=== PATIENT | female | born 1960 | race Caucasian/White ===

== ENCOUNTER 2016-03-08 11:54 | Inpatient (IN) | payer OTHER ==
[~2016-03-08] VITALS: Ht 167.6 cm; Wt 61.0 kg
[2016-03-08 12:30] VITALS: BP 89/42
[2016-03-08] MEDS: IV DEXTROSE 5% - 0.9 % NACL 1,000 ML IV SCH ×2 (13:00→21:44)
[2016-03-08] MEDS ORDERED: ONDANSETRON PF 4 MG/2 ML VIAL. IV PRN (13:00)
--- NOTE | 2016-03-08 13:28 | HP ---
ADMIT DATE: 03/08/2016 CHIEF COMPLAINT: Fever, body aches and weakness. HISTORY OF PRESENT ILLNESS: A 55-year-old white female seen by ANANDA Saab in my office on day of admission with 3 days of fatigue, weakness, poor oral intake and some vomiting and diarrhea. She has had a dry cough, muscle aches and just general malaise and poor appetite. She was positive for type A flu in the office and because of hypotension and dehydration, was admitted for IV fluids and supportive care. PAST MEDICAL: MEDICATIONS: Mirena and allergy meds. ALLERGIES: She has no drug allergies. She has had 1 . SURGERY: She has cholecystectomy and some nasal polyp removed. SOCIAL HISTORY: She is a nonsmoker, , nondrinker as well, [place]. FAMILY HISTORY: Unremarkable. REVIEW OF SYSTEMS: Mild diarrhea, otherwise generally unremarkable. OBJECTIVE: ENT: Mucosa looked to be dry. Sclerae are clear. TMs and pharynx normal. NECK: Revealed no carotid bruits, thyroid enlargement or masses. LUNGS: Decreased breath sounds, poor inspiratory effort. No wheezing or tachypnea. CARDIOVASCULAR: Regular rate and mild tachycardia. No murmur. ABDOMEN: Soft, benign, nontender. Bowel sounds are active. EXTREMITIES: Decreased skin turgor, good pedal and radial pulses. No cyanosis, clubbing or edema. GENERAL: General malaise with oriented x 4. Moves all extremities. No focal findings. ASSESSMENT: Type A flu was moderate dehydration and hypotension. PLAN: Per orders. BIA FAUSTIN MD DR: JOHNNIE/marycruz JOB#: [id number] / [id number]
[2016-03-08 13:56] LABS: BASO % 1 % (0-3); EOS % 1 % (0-3); HEMATOCRIT 36.5 % (36.0-47.0); HEMOGLOBIN 12.4 g/dL (12.0-15.5); LYMPH # 1.1 x10^3/uL (1.0-4.8); LYMPH % 36 % (24-48); MEAN CORPUSCULAR HEMOGLOBIN 32 pg (25-35); MEAN CORPUSCULAR HGB CONC 34 g/dL (31-37); MEAN CORPUSCULAR VOLUME 94 fL (79-100); MONO % 16 % (0-9); NEUT % 47 % (31-73); PLATELET COUNT 142 x10^3/uL (140-400); RED BLOOD COUNT 3.87 x10^6/uL (3.50-5.40); RED CELL DISTRIBUTION WIDTH 12.3 % (11.5-14.5); WHITE BLOOD COUNT 3.1 x10^3/uL (4.0-11.0)
[2016-03-08 14:14] LABS: CALCIUM 8.6 mg/dL (8.5-10.1); POTASSIUM 3.6 mmol/L (3.5-5.1)
[2016-03-08 15:28] VITALS: BP 86/42
[2016-03-08 15:30] VITALS: BP_SYST 86; BP_SYST 89; BP_DIAS 42
[2016-03-08] MEDS ORDERED: MULT-114 PO (16:10)
[2016-03-08] MEDS: OSELTAMIVIR 75 MG CAPSULE PO SCH ×2 (17:00→21:29)
[2016-03-08] MEDS ORDERED: CETI10TA22 PO (17:01)
[2016-03-08] MEDS ORDERED: TRIA10.8 NS (17:01)
--- NOTE | 2016-03-08 17:05 | RAD ---
Indication cough and shortness of breath. PA and lateral views of the chest were obtained. Comparison is made to an examination 09/20/2004. There is likely some scarring at the right lung apex. The heart and pulmonary vessels are within normal limits. There is no consolidated pneumonia. Significant pleural fluid is not present and there is no pneumothorax. IMPRESSION: No definite acute or focal process seen in the chest
[2016-03-08] MEDS ORDERED: IBUPROFEN 600 MG TABLET. PO PRN (18:15)
[2016-03-08 18:43] LABS: BILIRUBIN,URINE NEGATIVE (NEG); GLUCOSE,URINE NEGATIVE (NEG)
[2016-03-08 18:44] LABS: NITRITE,URINE NEGATIVE (NEG); PROTEIN,URINE NEGATIVE (NEG-TRACE); UROBILINOGEN,URINE 0.2 mg/dL (0.2 mg/dL)
[2016-03-08 18:45] LABS: BACTERIA,URINE 0 /HPF (0-FEW); RBC,URINE OCC /HPF (0-2); SQUAMOUS EPITHELIAL CELL,UR FEW /LPF; WBC,URINE 0 /HPF (0-4)
[2016-03-08 19:55] VITALS: BP 79/50
[2016-03-08 23:37] VITALS: BP 74/47
[2016-03-09] MEDS: IV NORMAL SALINE 1000ML BAG 1,000 ML IV SCH ×3 (02:44→20:31)
[2016-03-09 03:45] VITALS: BP 85/49
[2016-03-09 07:05] VITALS: BP 86/55
--- NOTE | 2016-03-09 08:22 | PDOC ---
Provider Note Provider Note feels less weak, some po intake, some diarrhea- vss, no temp, labs ok- cont iv fluid, adv diet, repeat wbc in am re 3.1 on admit, cont tamiflu BIA FAUSTIN MD Mar 09, 2016 08:22
[2016-03-09] MEDS: OSELTAMIVIR 75 MG CAPSULE PO SCH ×2 (09:17→20:29)
[2016-03-09 10:52] VITALS: BP 87/49
[2016-03-09 14:35] VITALS: BP 87/53
[2016-03-09 19:40] VITALS: BP 91/56
[2016-03-09] MEDS ORDERED: FLUTICASONE 50MCG/NASAL SPRAY 16GM BOTTLE. NS SCH (21:00)
[2016-03-09 22:25] VITALS: BP 86/53
[2016-03-10 02:33] VITALS: BP 88/57
[2016-03-10 05:59] LABS: HEMATOCRIT 32.9 % (36.0-47.0); HEMOGLOBIN 11.3 g/dL (12.0-15.5); RED BLOOD COUNT 3.46 x10^6/uL (3.50-5.40); RED CELL DISTRIBUTION WIDTH 12.4 % (11.5-14.5); WHITE BLOOD COUNT 2.9 x10^3/uL (4.0-11.0)
[2016-03-10 07:00] VITALS: BP 92/57
[2016-03-10] MEDS: OSELTAMIVIR 75 MG CAPSULE PO SCH (08:29)
[2016-03-10] MEDS: IV NORMAL SALINE 1000ML BAG 1,000 ML IV SCH (08:30)
--- NOTE | 2016-03-10 09:21 | DISCH ---
DISCHARGE INSTRUCTIONS Condition on Discharge Condition on Discharge: Stable Activity After Discharge Activity Instructions for Disc: No restrictions Diet after Discharge Diet after Discharge: Regular Follow-Up Follow up with: BIA London MD Mar 10, 2016 09:21
--- NOTE | 2016-03-10 09:25 | PDOC ---
Provider Note Provider Note [id number] BIA FAUSTIN MD Mar 10, 2016 09:25
[2016-03-10 10:43] VITALS: BP 87/50
[2016-03-10 15:02] VITALS: BP 95/54
--- NOTE | 2016-03-10 18:11 | DS ---
DATE OF DISCHARGE: 03/10/2016 HOSPITAL SUMMARY: A 55-year-old white female with influenza type A with vomiting, diarrhea, fatigue, and weakness, came in with dehydration and malaise and low blood pressure. White count was low at 3100 and at this time of discharge was 2900 with slightly low platelet count of 128,000 and chemistry profile was normal. Chest x-ray was clear. She received oral Tamiflu, IV fluids, and supportive care and is feeling better, afebrile, comfortable to be followed as an outpatient at this point. FINAL DIAGNOSES: 1. Influenza type A. 2. Leuko-thrombocytopenia, reactive, likely secondary to viral syndrome. OPERATIONS, PROCEDURES, COMPLICATIONS, CONSULTATIONS: None. DISPOSITION: Finished 5 days of Tamiflu 75 mg twice a day. Will follow up with white count in about 1 week. Home meds remain the same. Regular diet and activity as tolerated. PROGNOSIS: Good. BIA FAUSTIN MD DR: JOHNNIE/marycruz JOB#: [id number] / [id number]
== END 2016-03-10 15:55 | disposition home or self-care (01) | DRG 195 ==
LOC: 6 SOUTH 12:07
PROVIDERS: ADMIT Family Medicine; ATTEND Family Medicine
DX: J10.1 Influenza due to other identified influenza virus with other respiratory manifestations (principal); D69.6 Thrombocytopenia, unspecified; E86.0 Dehydration; I95.9 Hypotension, unspecified; Z90.49 Acquired absence of other specified parts of digestive tract
CPT/HCPCS: 36415; 71020; 80048; 81001; 85027; 87324; J7030; J7042

== ENCOUNTER 2016-05-23 13:31 | Emergency (ER) | payer OTHER ==
[~2016-05-23] VITALS: Ht 167.6 cm; Wt 59.4 kg
[~2016-05-23 13:31] MED LIST: CETI10TA22 PO; MULT-114 PO; TRIA10.8 NS
[2016-05-23] MEDS ORDERED: IV NORMAL SALINE 1000ML BAG 1,000 ML IV ONE ×3 (14:00→15:15)
--- NOTE | 2016-05-23 14:15 | PHYS DOC ---
Past Medical History Past Medical History: No Pertinent History Past Surgical History: Cholecystectomy, Tonsillectomy, Other Additional Past Surgical Histo: septoplasty Alcohol Use: Occasionally Drug Use: None Adult General Chief Complaint Chief Complaint: DIZZY/LIGHT HEADED HPI HPI 55-year-old female presenting to the emergency department today after having lightheadedness nausea and sweatiness approximately 2-3 hours after giving blood today around 11 AM. She reports giving approximately 1 pint of blood and feeling fine afterwards. She went down to the cafeteria and ate some food afterwards and was feeling okay. When she back to her desk she felt generally lightheaded and "not well". She denies any major medical conditions. She denies vomiting. She denies pain anywhere. Onset today. Location generalized. Duration intermittent. Worsened with walking. Review of systems is negative for chest pain shortness of breath. Positive for nausea without vomiting. Negative for fevers or chills. All other review of systems is negative unless otherwise noted in history of present illness. Review of Systems Review of Systems SEE ABOVE. Current Medications Current Medications Current Medications Medications (Trade) Dose Ordered Sig/Erik Start Time Stop Time Status Last Admin Dose Admin Sodium Chloride (Iv Sodium Chloride 0.9% 1000ml Bag) 1,000 ml @ 1,000 mls/hr 1X ONCE 05/23/16 15:15 05/23/16 16:14 DC Allergies Allergies Allergies Coded Allergies Type Severity Reaction Last Updated Verified No Known Drug Allergies 05/23/16 No Physical Exam Physical Exam Constitutional: Well developed, well nourished, no acute distress, non-toxic appearance. HENT: Normocephalic, atraumatic, bilateral external ears normal, oropharynx moist, no oral exudates, nose normal. [] Eyes: PERRLA, EOMI, conjunctiva normal, no discharge. Neck: Normal range of motion, no tenderness, supple, no stridor. [] Cardiovascular:Heart rate regular rhythm, no murmur [] Lungs & Thorax: Bilateral breath sounds clear to auscultation . No wheezing on auscultation. Abdomen: Bowel sounds normal, soft, no tenderness, no masses, no pulsatile masses. [] Skin: Warm, dry, no erythema, no rash. Back: No tenderness, no CVA tenderness. [] Extremities: No tenderness, no cyanosis, no clubbing, ROM intact, no edema. No petechiae on the lower extremities. Neurologic: Alert and oriented X 3, normal motor function, normal sensory function, no focal deficits noted. [] Psychologic: Affect normal, judgement normal, mood normal. Current Patient Data Vital Signs Vital Signs Date Time Temp Pulse Resp B/P Pulse Ox O2 Delivery O2 Flow Rate FiO2 05/23/16 15:35 65 95/54 100 Room Air 05/23/16 15:15 18 05/23/16 13:34 98.1 98.1 Lab Values Laboratory Tests Test 05/23/16 14:05 White Blood Count 7.5x10^3/uL (4.0-11.0) Red Blood Count 3.93x10^6/uL (3.50-5.40) Hemoglobin 12.6g/dL (12.0-15.5) Hematocrit 37.5% (36.0-47.0) Mean Corpuscular Volume 96fL (79-100) Mean Corpuscular Hemoglobin 32pg (25-35) Mean Corpuscular Hemoglobin Concent 34g/dL (31-37) Red Cell Distribution Width 13.0% (11.5-14.5) Platelet Count 238x10^3/uL (140-400) Neutrophils (%) (Auto) 70% (31-73) Lymphocytes (%) (Auto) 24% (24-48) Monocytes (%) (Auto) 5% (0-9) Eosinophils (%) (Auto) 1% (0-3) Basophils (%) (Auto) 0% (0-3) Neutrophils # (Auto) 5.3x10^3uL (1.8-7.7) Lymphocytes # (Auto) 1.8x10^3/uL (1.0-4.8) Monocytes # (Auto) 0.3x10^3/uL (0.0-1.1) Eosinophils # (Auto) 0.1x10^3/uL (0.0-0.7) Basophils # (Auto) 0.0x10^3/uL (0.0-0.2) Sodium Level 141mmol/L (136-145) Potassium Level 4.2mmol/L (3.5-5.1) Chloride Level 105mmol/L (98-107) Carbon Dioxide Level 28mmol/L (21-32) Anion Gap 8 (6-14) Blood Urea Nitrogen 17mg/dL (7-20) Creatinine 1.0mg/dL (0.6-1.0) Estimated GFR (Cockcroft-Gault) 58.0 Glucose Level 137mg/dL (70-99) H Calcium Level 8.8mg/dL (8.5-10.1) Total Bilirubin 0.4mg/dL (0.2-1.0) Direct Bilirubin 0.1mg/dL (0.0-0.2) Aspartate Amino Transferase (AST) 30U/L (15-37) Alanine Aminotransferase (ALT) 34U/L (14-59) Alkaline Phosphatase 69U/L (46-116) Total Protein 7.3g/dL (6.4-8.2) Albumin 3.9g/dL (3.4-5.0) Lipase 106U/L (73-393) Laboratory Tests 05/23/16 14:05 Laboratory Tests 05/23/16 14:05 EKG EKG [] Radiology/Procedures Radiology/Procedures [] Course & Med Decision Making Course & Med Decision Making Pertinent Labs and Imaging studies reviewed. (See chart for details) [] 55-year-old female presenting the emergency department with lightheadedness dizziness and nausea. Initially the patient's vital signs showed her to be hypotensive around 90 systolic. She does report normally her blood pressure being mid 90s to mid 100s systolic. She reports prior to the blood being taken her blood pressure was approximately 105 systolic. Patient was feeling lightheaded however was not diaphoretic in the examination room. She was otherwise well-appearing laying comfortably in the room. Pertinent physical exam findings showed normal lungs to auscultation with a nontender abdomen. Nonfocal neuro exam. She was given IV fluids in the emergency department. Blood work sent. On reexamination she reports feeling much better. Blood pressure is, up to mid 105 approximately. Patient was able to walk in the emergency department without any assistance and without return of her symptoms. She was subsequently discharged home to follow-up with her PCP over the next 2-3 days. Dragon Disclaimer Dragon Disclaimer This electronic medical record was generated, in whole or in part, using a voice recognition dictation system. Departure Departure Impression: Primary Impression: Hypovolemia Additional Impressions: Hypotension Nausea Dizziness Referrals: BIA FAUSTIN MD (PCP) Patient Instructions: Dizziness Additional Instructions: Thank you for allowing us to participate in your care today. Followup with your primary care physician in 3 days if your symptoms do not improve. If you do not have a primary care provider you can ask for a list of our primary care providers. Return to the emergency department you have any new or concerning findings. This should be evaluated by the primary care physician and any necessary consulting services for continued management within a few days after discharge. Return to emergency room if you have any new or concerning symptoms including but not limited to fever, chills, nausea, vomiting, intractable pain, any new rashes, chest pain, shortness of air, uncontrolled bleeding, difficulty breathing, and/or vision loss. Problem Qualifiers IFTIKHAR HAMILTON MD May 23, 2016 14:15
--- NOTE | 2016-05-23 14:27 | EKG ---
[facility] [address] [place] [address] Test Date: 2016-05-23 Test Time: 14:17:00 Pat Name: MARTHA PAGAN Department: Room: Gender: F Inventory Associate And Driver: : [id number] Requested By: IFTIKHAR HAMILTON Order Number: [id number] Reading MD: Reed Portillo Measurements Intervals Clancy Rate: 53 P: 49 CT: 174 QRS: 59 QRSD: 70 T: 58 QT: 458 QTc: 432 Interpretive Statements SINUS RHYTHM Electronically Signed On 05-24-2016 9:52:26 CDT by Reed Portillo
[2016-05-23 14:28] LABS: BASO % 0 % (0-3); EOS % 1 % (0-3); HEMATOCRIT 37.5 % (36.0-47.0); HEMOGLOBIN 12.6 g/dL (12.0-15.5); LYMPH # 1.8 x10^3/uL (1.0-4.8); LYMPH % 24 % (24-48); MEAN CORPUSCULAR HEMOGLOBIN 32 pg (25-35); MEAN CORPUSCULAR HGB CONC 34 g/dL (31-37); MEAN CORPUSCULAR VOLUME 96 fL (79-100); MONO % 5 % (0-9); NEUT % 70 % (31-73); PLATELET COUNT 238 x10^3/uL (140-400); RED BLOOD COUNT 3.93 x10^6/uL (3.50-5.40); WHITE BLOOD COUNT 7.5 x10^3/uL (4.0-11.0)
[2016-05-23 14:29] LABS: CALCIUM 8.8 mg/dL (8.5-10.1); POTASSIUM 4.2 mmol/L (3.5-5.1)
[2016-05-23 14:35] LABS: ALBUMIN 3.9 g/dL (3.4-5.0); DIRECT BILIRUBIN 0.1 mg/dL (0.0-0.2); TOTAL BILIRUBIN 0.4 mg/dL (0.2-1.0); TOTAL PROTEIN 7.3 g/dL (6.4-8.2)
[2016-05-23 16:00] VITALS: BP 108/58
== END 2016-05-23 17:15 | disposition home or self-care (01) ==
LOC: ER 13:31
DX: E86.1 Hypovolemia (principal); I95.9 Hypotension, unspecified; R42 Dizziness and giddiness; Z90.49 Acquired absence of other specified parts of digestive tract
CPT/HCPCS: 36415; 80048; 80076; 83690; 85027; 93005; 96360; 99285; J7030; 80305

== ENCOUNTER → 2016-07-26 | Outpatient (CLI) | payer OTHER ==
[2016-07-26 09:07] LABS: BASO % 1 % (0-3); EOS % 4 % (0-3); HEMATOCRIT 38.1 % (36.0-47.0); HEMOGLOBIN 13.4 g/dL (12.0-15.5); LYMPH # 1.7 x10^3/uL (1.0-4.8); LYMPH % 39 % (24-48); MEAN CORPUSCULAR HEMOGLOBIN 34 pg (25-35); MEAN CORPUSCULAR HGB CONC 35 g/dL (31-37); MEAN CORPUSCULAR VOLUME 96 fL (79-100); MONO % 8 % (0-9); NEUT % 49 % (31-73); PLATELET COUNT 215 x10^3/uL (140-400); RED BLOOD COUNT 3.99 x10^6/uL (3.50-5.40); RED CELL DISTRIBUTION WIDTH 12.4 % (11.5-14.5); WHITE BLOOD COUNT 4.3 x10^3/uL (4.0-11.0)
[2016-07-26 09:23] LABS: ALBUMIN 4.3 g/dL (3.4-5.0); ALBUMIN/GLOBULIN RATIO 1.1 (1.0-1.7); CALCIUM 9.2 mg/dL (8.5-10.1); CREATININE 0.9 mg/dL (0.6-1.0); GFR 65.5; POTASSIUM 3.8 mmol/L (3.5-5.1); TOTAL BILIRUBIN 0.6 mg/dL (0.2-1.0); TOTAL PROTEIN 8.2 g/dL (6.4-8.2)
[2016-07-26 09:24] LABS: CHOLESTEROL/HDL RATIO 5.8
[2016-07-26 09:31] LABS: FREE T4 1.09 ng/dL (0.76-1.46)
== END | disposition home or self-care (01) ==
LOC: LAB 08:42
PROVIDERS: ATTEND Physician Assistant
DX: Z13.1 Encounter for screening for diabetes mellitus (principal); Z13.220 Encounter for screening for lipoid disorders; R00.2 Palpitations; R35.0 Frequency of micturition; Z79.899 Other long term (current) drug therapy
CPT/HCPCS: 36415; 80053; 80061; 83036; 84439; 84443; 85027

== ENCOUNTER → 2016-08-04 | Outpatient (CLI) | payer OTHER ==
--- NOTE | 2016-08-04 09:34 | RAD ---
Lumbar spine, 3 views, 08/04/2016: History: Foot pain, back pain, radiculopathy The lumbar vertebral heights are well-maintained. The intervertebral disc spaces are well preserved. There are only minimal marginal spurs. There are mild sclerotic changes involving the facet joints in the lower lumbar spine. An IUD is projected over the lower pelvis near the midline. IMPRESSION: 1. Mild degenerative changes. 2. No acute bony abnormality is detected.
== END | disposition home or self-care (01) ==
LOC: RAD 08:41
PROVIDERS: ATTEND Physician Assistant
DX: M54.17 Radiculopathy, lumbosacral region (principal); M47.896 Other spondylosis, lumbar region
CPT/HCPCS: 72100

== ENCOUNTER → 2016-08-08 | Outpatient (CLI) | payer OTHER ==
--- NOTE | 2016-08-08 09:54 | RAD ---
MRI Lumbar Spine without contrast History: Left foot numbness for 4 months Technique: Multiplanar, multi sequential noncontrast MR imaging was performed of the lumbar spine. Contrast: None Comparison: None Findings: Lumbar vertebral body stature and AP alignment are preserved. There is mild degenerative disc disease at L5-S1, posterior annular tear at this level. Conus terminates at L1-2. There is no significant marrow edema. 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 There are likely tiny hemangiomas of L4 and L1. L1-L2: Neural foramina and spinal canal are adequate. L2-L3: Spinal canal and neural foramina are adequate. L3-L4: Neural foramina and spinal canal are adequate. L4-L5: Spinal canal and neural foramina are adequate. There are posterolateral annular tears bilaterally. L5-S1: There is a negligible posterior protrusion without impingement of the descending S1 nerve roots. Spinal canal and the neural foramina are adequate. Impression: 1. There is no significant lumbar spinal stenosis or neural foramina compromise. There is mild degenerative disc disease at L5-S1. There are posterior annular tears as stated. 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 Electronically signed by: Teddy Bonilla MD (08/08/2016 9:51 AM)
== END | disposition home or self-care (01) ==
LOC: MRI 08:18
PROVIDERS: ATTEND Family Medicine
DX: M51.37 Other intervertebral disc degeneration, lumbosacral region (principal); M54.17 Radiculopathy, lumbosacral region
CPT/HCPCS: 72148

== ENCOUNTER → 2016-08-15 | Outpatient (CLI) | payer OTHER ==
--- NOTE | 2016-08-15 15:48 | RAD ---
Indication: Bilateral lower extremity swelling. Grayscale, color-flow and duplex Doppler evaluation of bilateral lower extremity deep venous systems was performed. FINDINGS: There is no evidence of right or left lower extremity DVT. Both lower extremity deep venous systems showed normal compressibility with normal response to augmentation and Valsalva. No fluid collection or mass is detected. IMPRESSION: No evidence of right or left lower extremity DVT.
== END | disposition home or self-care (01) ==
LOC: US 15:46
PROVIDERS: ATTEND Physician Assistant
DX: M79.89 Other specified soft tissue disorders (principal)
CPT/HCPCS: 93970

== ENCOUNTER → 2016-10-14 | Outpatient (CLI) | payer OTHER ==
[~2016-10-14] MED LIST changes: +ASPI-482 PO; +CHOL10003 PO; +FISH1CAP PO; +GABA-586 PO; +[UNRECOGNIZED DRUG - OTHER]; +tumeric curcumin
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
== END | disposition home or self-care (01) ==
LOC: PNCL 07:58
PROVIDERS: ATTEND Anesthesiology
DX: M51.37 Other intervertebral disc degeneration, lumbosacral region (principal); M79.662 Pain in left lower leg; K21.9 Gastro-esophageal reflux disease without esophagitis; I10 Essential (primary) hypertension; R42 Dizziness and giddiness
CPT/HCPCS: 99214

== ENCOUNTER → 2016-10-26 | Outpatient (CLI) | payer OTHER ==
[~2016-10-26] MED LIST changes: +IOHEXOL 180 MG/ML 10 ML VIAL. ONE; +methylPREDNISolone ACETATE 40 MG/ML VIAL. ONE; +methylPREDNISolone ACETATE 80 MG/ML VIAL. ONE
--- NOTE | 2016-10-26 13:19 | PN ---
DATE: 10/26/2016 PROGRESS NOTE FOR PAIN CLINIC DIAGNOSES: Lumbar radiculopathy with lumbar degenerative disk disease. HISTORY OF PRESENT ILLNESS: The patient is a 56-year-old female who returns for followup status post initial evaluation and Medrol Dosepak. The patient reports she did better, about 50% with the Medrol Dosepak, still some pain in low back and left leg as it was previously, returning not to baseline, but still significant. The patient has been taking it very easy, she reports, without significant activity or pushing activities and is somewhat cautious in starting this again as she is afraid that she may exacerbate the pain. The patient reports pain as 6 on a scale of 10 is worse, 2 at its least and is currently a 4, which is its average number. The patient reports it as aching, shooting, tingling, burning, radiating to the left leg, as it was previously, in the posterior gluteus, posterior thigh, posterior calf and also the side of the foot on the left side and sometimes at the top of the foot as well. The patient reports no new motor or sensory deficits. No new bowel or bladder incontinence. PHYSICAL EXAMINATION: VITAL SIGNS: Today, the patient's blood pressure is 113/66, pulse 67, respirations 20 and temperature is 97.7 degrees Fahrenheit. Weight is 140 pounds. GENERAL: The patient is awake, alert, oriented, appropriate, very pleasant demeanor. HEENT: Head shows normocephalic, atraumatic. Extraocular movements are intact and symmetrical. Oral cavity, mucous membranes are moist and pink. Dentition is intact. NECK: Shows anterior throat supple, without palpable lymphadenopathy noted. Swallow reflex is symmetrical. CHEST: Shows normal on inspection. Breath sounds are clear to auscultation bilaterally. HEART: Shows S1 and S2 clear. ABDOMEN: Soft, nontender and nondistended. No palpable organomegaly is noted. BACK: Shows spine grossly midline. Normal-appearing thoracic kyphosis and lumbar lordotic curvature. Lumbar paraspinous muscle shows symmetrical on inspection and firm, but without significant tenderness with palpation throughout. No tenderness over the sacrum and sacroiliac regions or the spinous processes. The patient shows good rotation and motion, both laterally as well as extension and flexion, without difficulty in the lumbar distribution. LOWER EXTREMITIES: Show deep tendon reflexes 2+ in the patellar, 1+ tendo calcaneus tendons. Motor exam is strong with 5/5 dorsiflexion, extension, quadriceps and hamstring flexion and equal. Options were discussed with the patient. The patient's old chart was reviewed as her current medication regimen updated. Current review of systems updated today as well. We will proceed with a lumbar epidural steroid injection today with fluoroscopic guidance. Risks were again discussed including, but not limited to bleeding, infection, possibility of epidural hematoma, subsequent neurologic compromise, dural puncture, headaches, spinal cord and/or nerve damage, side effects of steroid medication and poor results regarding pain control. The patient understands and wishes to proceed. The patient will return to clinic in approximately 2 weeks for followup, was counseled on return appointment, activity level and side effects to be aware of. DIAGNOSES: Lumbar radiculopathy with lumbar degenerative disk disease. PROCEDURES: Lumbar epidural steroid injection in translaminar approach, L5-S1 level using C-arm fluoroscopic guidance under sterile prep and drape using local anesthetic. MEDICATION INJECTED: A total of 120 mg Depo-Medrol plus 10 mL preservative-free normal saline and 2 mL Isovue for contrast. CONDITION AT DISCHARGE: Stable. The patient tolerated procedure well, had no complications. THERESE SMITH MD DR: LALITO/nts JOB#: [id number] / [id number]
== END ==
LOC: PNCL 08:05
PROVIDERS: ATTEND Anesthesiology
DX: M51.16 Intervertebral disc disorders with radiculopathy, lumbar region (principal); Z90.49 Acquired absence of other specified parts of digestive tract; Z98.890 Other specified postprocedural states
CPT/HCPCS: 62323; J1030; J1040

== ENCOUNTER → 2016-11-09 | Outpatient (CLI) | payer OTHER ==
--- NOTE | 2016-11-09 12:09 | PAIN ---
DATE OF SERVICE: 11/09/2016 DIAGNOSIS: Lumbar radiculopathy with lumbar degenerative disk disease. HISTORY OF PRESENT ILLNESS: The patient is a 56-year-old female who returns for followup status post lumbar epidural steroid injection x 1. The patient reports approximately 50% improvement after the first injection in her left leg. She was doing very well, increasing her activity with greater ease and comfort, sleeping better at night, performing daily activities with much greater ability and ease. The patient reports the pain returned as she was doing some yoga, some stretching and some kickboxing with her left leg and that began to return the pain just a few days ago. The patient reports other than that she was doing quite well, only some pain to the low back, mainly on the left side, but occasionally on the right side and into the left leg and foot. The patient reports as aching, tingling, cramping, burning off and on, though not intense and not constant. The patient reports a 3 on a scale of 10 at its worse, 2 on average and 1 on a scale of 10 at its least and is at 1 today. The patient reports it wakes her from sleep occasionally, but not every night. She needs to reposition and get back to sleep, sleeps about 5 hours at a time. PHYSICAL EXAMINATION: VITAL SIGNS: The patient's blood pressure 104/71, pulse 65, respirations are 16, temperature 98.1 degrees Fahrenheit. Height is 5 feet 6 inches, weighs 135 pounds. GENERAL: The patient is awake, alert, oriented, appropriate, very pleasant demeanor. HEENT: Head shows normocephalic, atraumatic. Extraocular movements are intact and symmetrical. Oral cavity, mucous membranes are moist and pink. Dentition is intact. NECK: Shows anterior throat supple without palpable lymphadenopathy noted. Swallow reflex is symmetrical. CHEST: Shows normal on inspection. Breath sounds clear to auscultation bilaterally. HEART: Shows S1 and S2 clear. No murmurs auscultated. ABDOMEN: Soft, nontender, nondistended. No palpable organomegaly, no rebound or guarding demonstrated. BACK: Shows spine grossly midline. Lumbar paraspinous muscle shows some moderate tenderness to palpation, but is symmetrical without atrophy or hypertrophy. The patient shows good rotational motion both laterally as well as extension and flexion without difficulty. EXTREMITIES: Lower extremities showed deep tendon reflexes 2+ in the patellar tendons, 1+ tendo calcaneus tendons, are equal. Motor exam is strong with 5/5 dorsiflexion, extension, quadriceps and hamstring flexion and symmetrical. Options were discussed with the patient. The patient's old chart was reviewed as her current medication regimen updated. Current review of systems updated today as well. We will proceed with a second in the series of lumbar epidural steroid injection with fluoroscopic guidance. Risks were again discussed including, but not limited to bleeding, infection, possibility of epidural hematoma, subsequent neurologic compromise, dural puncture, headaches, spinal cord and/or nerve damage, side effects of steroid medication and poor results regarding pain control. The patient understands and wishes to proceed. The patient will return to clinic in approximately 2 weeks for followup. She was counseled on return appointment, activity level and side effects to be aware of. DIAGNOSIS: Lumbar radiculopathy with lumbar degenerative disk disease. PROCEDURE: Lumbar epidural steroid injection in translaminar approach at the L5-S1 level using C-arm fluoroscopic guidance under sterile prep and drape using local anesthetic. MEDICATION INJECTED: A total of 120 mg Depo-Medrol plus 10 mL of preservative-free normal saline and 2 mL Isovue for contrast. CONDITION AT DISCHARGE: Stable. The patient tolerated procedure well, had no complications. THERESE SMITH MD DR: LALITO/marycruz JOB#: [id number] / [id number]
== END | disposition home or self-care (01) ==
LOC: PNCL 08:05
PROVIDERS: ATTEND Anesthesiology
DX: M51.16 Intervertebral disc disorders with radiculopathy, lumbar region (principal); Z90.49 Acquired absence of other specified parts of digestive tract; Z87.39 Personal history of other diseases of the musculoskeletal system and connective tissue
CPT/HCPCS: 62323; J1030; J1040

== ENCOUNTER → 2016-11-23 | Outpatient (CLI) | payer OTHER ==
[~2016-11-23] MED LIST changes: -IOHEXOL 180 MG/ML 10 ML VIAL. ONE; +ONDA4TAB10 SL; -methylPREDNISolone ACETATE 40 MG/ML VIAL. ONE; -methylPREDNISolone ACETATE 80 MG/ML VIAL. ONE
--- NOTE | 2016-11-23 10:12 | PAIN ---
DATE OF SERVICE: 11/23/2016 PROGRESS NOTE FOR PAIN CLINIC DIAGNOSES: Lumbar radiculopathy with lumbar degenerative disk disease. HISTORY OF PRESENT ILLNESS: The patient is a 56-year-old female who returns for followup status post lumbar epidural steroid injection x 2. The patient reports about 99% improvement in her low back and lower extremity pain. The patient reports very good improvement, still some tingling in the foot, mostly on the left side as tingling, burning, cramping and aching but only a 2 on a scale of 10 at it is worst, is 1 at most times. The patient reports sometimes the pain is completely gone, is now intermittent, off and on. She is sleeping well at night, increasing her activity with greater ease and comfort and exercising with much better ease and ability and is very pleased with her progress. The patient reports no new motor or sensory deficits, no new bowel or bladder incontinence or other complaints. PHYSICAL EXAMINATION: VITAL SIGNS: The patient's blood pressure 103/63, pulse 71, respirations 18, temperature 98.2 degrees Fahrenheit and weight is 138 pounds. GENERAL: The patient is awake, alert, oriented, appropriate and very pleasant demeanor. HEENT: Head shows normocephalic and atraumatic. Extraocular movements are intact and symmetrical. Oral cavity, mucous membranes moist and pink. Dentition is intact. NECK: Shows anterior throat supple without palpable lymphadenopathy noted. Swallow reflex is symmetrical. CHEST: Shows normal on inspection. Breath sounds are clear to auscultation bilaterally. HEART: Shows S1 and S2 clear. No murmurs auscultated. ABDOMEN: Soft, nontender and nondistended. BACK: Shows spine grossly midline. Lumbar paraspinous musculature shows symmetrical on inspection with palpation shows some mild tenderness but only very diffusely and mildly in the low lumbar distribution. Full rotational motion of the lumbar spine, both laterally as well as extension and flexion without difficulty. LOWER EXTREMITIES: Showed deep tendon reflexes 2 plus in the patellar, 1 plus tendocalcaneus tendons, are equal. Motor exam is strong with 5/5 dorsiflexion, extension, quadriceps and hamstring flexion. PLAN: Options were discussed with the patient. The patient's old chart was reviewed as her current medication regimen updated. Current review of systems updated today as well and we will hold on any further injections as she is doing quite a bit better with increasing her activity and much better pain control. The patient will continue her exercises and increase this as tolerated. The patient will contact the clinic on an as needed basis at this time. THERESE SMITH MD DR: LALITO/marycruz JOB#: [id number] / [id number]
== END | disposition home or self-care (01) ==
LOC: PNCL 07:31
PROVIDERS: ATTEND Anesthesiology
DX: M51.16 Intervertebral disc disorders with radiculopathy, lumbar region (principal)
CPT/HCPCS: 99212

== ENCOUNTER 2016-11-30 11:17 | Emergency (ER) | payer OTHER ==
[~2016-11-30] VITALS: Ht 167.6 cm; Wt 61.2 kg
[~2016-11-30 11:17] MED LIST changes: -ONDA4TAB10 SL
--- NOTE | 2016-11-30 11:53 | PHYS DOC ---
Past Medical History Past Medical History: No Pertinent History Past Surgical History: Cholecystectomy, Tonsillectomy, Other Additional Past Surgical Histo: septoplasty Alcohol Use: Occasionally Drug Use: None Adult General Chief Complaint Chief Complaint: headache, weak extremities HPI HPI Patient is a 56 year old female who presents with acute onset headache and lymph extremities and legs that just "feel funny". Started this morning after pt had performed kick-boxing routine, which she's been doing the last two weeks. She felt well this morning but then had breakfast and started to have a headache on the right side of her head and just felt generalized weakness. She denies any focal weakness, nausea but no vomiting. He attempted to eat more but this did not improve her symptoms. Her headache is improved but she still feels generalized weakness with some nausea. No prior similar symptoms, she's been battling sinus problems "for a long time." Has been taking some allergy medications for this. PCP is Dannielle at Dr. Harrison office Review of Systems Review of Systems Constitutional: Denies fever or chills [] Eyes: Denies change in visual acuity, redness, or eye pain [] HENT: Denies nasal congestion or sore throat [] Respiratory: Denies cough or shortness of breath [] Cardiovascular: denies chest pain GI: Denies abdominal pain, vomiting, bloody stools or diarrhea [] : Denies dysuria or hematuria [] Musculoskeletal: Denies back pain or joint pain [] Integument: Denies rash or skin lesions [] Neurologic: Denies ocal weakness or sensory changes [] Current Medications Current Medications Current Medications Medications (Trade) Dose Ordered Sig/Erik Start Time Stop Time Status Last Admin Dose Admin Ketorolac Tromethamine (Toradol) 30 mg 1X ONCE 11/30/16 13:15 11/30/16 13:16 DC 11/30/16 13:54 30 MG Ondansetron HCl (Zofran) 4 mg 1X ONCE 11/30/16 14:15 11/30/16 14:16 DC 11/30/16 13:54 4 MG Sodium Chloride 1,000 ml @ 1,000 mls/hr 1X ONCE 11/30/16 12:15 11/30/16 13:14 DC 11/30/16 12:18 1,000 MLS/HR Allergies Allergies Allergies Coded Allergies Type Severity Reaction Last Updated Verified No Known Drug Allergies 05/23/16 No Physical Exam Physical Exam Constitutional: Well developed, well nourished, no acute distress, non-toxic appearance. [] HENT: Normocephalic, atraumatic, bilateral external ears normal, oropharynx moist, no oral exudates, nose normal. [] Eyes: PERRLA, EOMI, conjunctiva normal, no discharge. [] Neck: Normal range of motion, no tenderness, supple, no stridor. [] Cardiovascular:Heart rate regular with regular rhythm, no murmur [] Lungs & Thorax: Bilateral breath sounds clear to auscultation [] Abdomen: soft, no tenderness, no masses, no pulsatile masses. [] Skin: Warm, dry, no erythema, no rash. [] Back: No tenderness, no CVA tenderness. [] Extremities: No tenderness, no cyanosis, no clubbing, ROM intact, no edema. [] Neurologic: Alert and oriented X 3, normal motor function, normal sensory function, no focal deficits noted.5/5 bilateral hand executive vice president business development, hip flexors, normal sensory. CN II-XII intact Psychologic: Affect normal, judgement normal, mood normal. [] Current Patient Data Vital Signs Vital Signs Date Time Temp Pulse Resp B/P (MAP) Pulse Ox O2 Delivery O2 Flow Rate FiO2 11/30/16 14:30 68 16 98 11/30/16 11:32 97.6 106/66 (79) Room Air 97.6 Lab Values Laboratory Tests Test 11/30/16 11:30 11/30/16 11:50 11/30/16 11:59 11/30/16 13:10 Troponin I Quantitative < 0.017 ng/mL (0.000-0.055) White Blood Count 5.0 x10^3/uL (4.0-11.0) Red Blood Count 4.19 x10^6/uL (3.50-5.40) Hemoglobin 14.3 g/dL (12.0-15.5) Hematocrit 40.9 % (36.0-47.0) Mean Corpuscular Volume 98 fL (79-100) Mean Corpuscular Hemoglobin 34 pg (25-35) Mean Corpuscular Hemoglobin Concent 35 g/dL (31-37) Red Cell Distribution Width 13.6 % (11.5-14.5) Platelet Count 150 x10^3/uL (140-400) Neutrophils (%) (Auto) 63 % (31-73) Lymphocytes (%) (Auto) 27 % (24-48) Monocytes (%) (Auto) 8 % (0-9) Eosinophils (%) (Auto) 1 % (0-3) Basophils (%) (Auto) 1 % (0-3) Neutrophils # (Auto) 3.2 x10^3uL (1.8-7.7) Lymphocytes # (Auto) 1.4 x10^3/uL (1.0-4.8) Monocytes # (Auto) 0.4 x10^3/uL (0.0-1.1) Eosinophils # (Auto) 0.1 x10^3/uL (0.0-0.7) Basophils # (Auto) 0.0 x10^3/uL (0.0-0.2) Magnesium Level 2.0 mg/dL (1.8-2.4) POC Hemoglobin 13.9 g/dL (12-15) POC Hematocrit 41 % (36-40) H POC Sodium 140 mmol/L (135-145) POC Potassium 3.5 mmol/L (3.5-5.0) POC Chloride 103 mmol/L (98-110) POC Total CO2 26 mmol/L (23-32) Anion Gap 15 mmol/L (6-14) H POC Blood Urea Nitrogen 16 mg/dL (8-26) POC Creatinine 0.8 mg/dL (0.5-1.4) Glucose Level 148 mg/dL (70-99) H POC Ionized Calcium (Deion) 1.14 mmol/L (1.13-1.32) Urine Collection Type Unknown Urine Color Yellow Urine Clarity Clear Urine pH 5.5 Urine Specific [place] 1.015 Urine Protein Negative mg/dL (NEG-TRACE) Urine Glucose (UA) Negative mg/dL (NEG) Urine Ketones (Stick) Negative mg/dL (NEG) Urine Blood Trace (NEG) Urine Nitrite Negative (NEG) Urine Bilirubin Negative (NEG) Urine Urobilinogen Dipstick 0.2 mg/dL (0.2 mg/dL) Urine Leukocyte Esterase Negative (NEG) Urine RBC Rare /HPF (0-2) Urine WBC 0 /HPF (0-4) Urine Squamous Epithelial Cells Few /LPF Urine Bacteria 0 /HPF (0-FEW) Urine Mucus Marked /LPF Laboratory Tests 11/30/16 11:50 Laboratory Tests 11/30/16 11:59 EKG EKG 55 bpm, sinus, normal axis, normal intervals, no ST elevation or depression, nonischemic T waves, interpreted by ri Radiology/Procedures Radiology/Procedures CT head: Indication right-sided headaches. Weakness. Noncontrast images of the head were obtained. No prior targeted CT head imaging is available. The calvarium appears unremarkable and the visualized paranasal sinuses appear normal. There is no subdural or epidural hematoma. Ventricles and sulci are normal. There is no mass or midline shift. No hemorrhage is seen. No acute finding is apparent. IMPRESSION: Normal study. Course & Med Decision Making Course & Med Decision Making Pertinent Labs and Imaging studies reviewed. (See chart for details) pt given IV fluids and labs/CT head ordered. Neg CT head, IV toradol ordered for headache. Pt then c/o nausea and IV zofran given. Offered admission but pt feels comfortable going home. No focal findings on exam/radiographs or labs. DC'd with return precautions. Dragon Disclaimer Dragon Disclaimer This electronic medical record was generated, in whole or in part, using a voice recognition dictation system. Departure Departure Impression: Primary Impression: Headache Additional Impression: Weakness Disposition: 01 HOME, SELF-CARE Condition: STABLE Referrals: BIA HARRISON MD (PCP) Scripts Ondansetron (ZOFRAN ODT) 4 Mg Tab.rapdis 1 TAB SL Q8HRS Y for NAUSEA, #10 TAB Prov: HARMAN PETERS MD 11/30/16 Problem Qualifiers HARMAN PETERS MD Nov 30, 2016 11:53
[2016-11-30 11:59] LABS: BASO % 1 % (0-3); EOS % 1 % (0-3); HEMATOCRIT 40.9 % (36.0-47.0); HEMOGLOBIN 14.3 g/dL (12.0-15.5); LYMPH # 1.4 x10^3/uL (1.0-4.8); LYMPH % 27 % (24-48); MEAN CORPUSCULAR HEMOGLOBIN 34 pg (25-35); MEAN CORPUSCULAR HGB CONC 35 g/dL (31-37); MEAN CORPUSCULAR VOLUME 98 fL (79-100); MONO % 8 % (0-9); NEUT % 63 % (31-73); PLATELET COUNT 150 x10^3/uL (140-400); RED BLOOD COUNT 4.19 x10^6/uL (3.50-5.40); RED CELL DISTRIBUTION WIDTH 13.6 % (11.5-14.5)
[2016-11-30 12:02] LABS: POTASSIUM ISTAT 3.5 mmol/L (3.5-5.0)
--- NOTE | 2016-11-30 12:03 | RAD ---
Indication right-sided headaches. Weakness. Noncontrast images of the head were obtained. No prior targeted CT head imaging is available. The calvarium appears unremarkable and the visualized paranasal sinuses appear normal. There is no subdural or epidural hematoma. Ventricles and sulci are normal. There is no mass or midline shift. No hemorrhage is seen. No acute finding is apparent. IMPRESSION: Normal study. PQRS Compliance Statement: One or more of the following individualized dose reduction techniques were utilized for this examination: 1. Automated exposure control 2. Adjustment of the mA and/or kV according to patient size 3. Use of iterative reconstruction technique
[2016-11-30] MEDS ORDERED: IV NORMAL SALINE 1000ML BAG 1,000 ML IV ONE (12:15)
[2016-11-30] MEDS ORDERED: KETOROLAC 30 MG/ML INJ. IV ONE (13:15)
[2016-11-30 13:19] LABS: BILIRUBIN,URINE NEGATIVE (NEG); GLUCOSE,URINE NEGATIVE (NEG); NITRITE,URINE NEGATIVE (NEG); PH,URINE 5.5; PROTEIN,URINE NEGATIVE (NEG-TRACE); UROBILINOGEN,URINE 0.2 mg/dL (0.2 mg/dL)
--- NOTE | 2016-11-30 13:32 | EKG ---
[facility] [address] [place] [address] Test Date: 2016-11-30 Test Time: 11:39:47 Pat Name: MARTHA PAGAN Department: Room: Gender: F Management Developer: : 1960 Requested By: HARMAN PETERS Order Number: [id number] Reading MD: Yanira Schumacher Measurements Intervals [place] Rate: 55 P: 52 IA: 160 QRS: 16 QRSD: 72 T: 39 QT: 420 QTc: 404 Interpretive Statements SINUS RHYTHM NORMAL EKG Electronically Signed On 12-04-2016 15:18:03 CDT by Yanira Schumacher
[2016-11-30 13:44] LABS: BACTERIA,URINE 0 /HPF (0-FEW); RBC,URINE RARE /HPF (0-2); SQUAMOUS EPITHELIAL CELL,UR FEW /LPF; WBC,URINE 0 /HPF (0-4)
[2016-11-30] MEDS ORDERED: ONDANSETRON PF 4 MG/2 ML VIAL. IV ONE (14:15)
[2016-11-30] MEDS ORDERED: ONDA4TAB10 SL (14:22)
[2016-11-30 14:30] VITALS: BP 96/58
== END 2016-11-30 14:30 | disposition home or self-care (01) ==
LOC: ER 11:17
DX: R51 Headache (principal); R53.1 Weakness; R11.0 Nausea; Z90.49 Acquired absence of other specified parts of digestive tract
CPT/HCPCS: 36415; 70450; 80047; 81001; 83735; 84484; 85025; 93005; 96361; 96374; 96375; 99285; J1885; J2405; J7030

== ENCOUNTER → 2016-12-08 | Outpatient (CLI) | payer OTHER ==
[2016-11-30 14:30] VITALS: BP 96/58
[~2016-12-08] MED LIST changes: +ONDA4TAB10 SL
[2016-12-08 16:22] LABS: BASO % 1 % (0-3); EOS % 2 % (0-3); HEMATOCRIT 39.6 % (36.0-47.0); HEMOGLOBIN 13.9 g/dL (12.0-15.5); LYMPH % 44 % (24-48); MEAN CORPUSCULAR HEMOGLOBIN 34 pg (25-35); MEAN CORPUSCULAR HGB CONC 35 g/dL (31-37); MEAN CORPUSCULAR VOLUME 96 fL (79-100); MONO % 10 % (0-9); NEUT % 44 % (31-73); PLATELET COUNT 189 x10^3/uL (140-400); RED BLOOD COUNT 4.11 x10^6/uL (3.50-5.40); RED CELL DISTRIBUTION WIDTH 13.1 % (11.5-14.5); WHITE BLOOD COUNT 4.7 x10^3/uL (4.0-11.0)
[2016-12-08 16:57] LABS: ALBUMIN 4.2 g/dL (3.4-5.0); ALBUMIN/GLOBULIN RATIO 1.2 (1.0-1.7); CALCIUM 9.4 mg/dL (8.5-10.1); CREATININE 0.9 mg/dL (0.6-1.0); GFR 65.2; POTASSIUM 4.1 mmol/L (3.5-5.1); TOTAL BILIRUBIN 0.5 mg/dL (0.2-1.0); TOTAL PROTEIN 7.7 g/dL (6.4-8.2)
[2016-12-08 17:26] LABS: FREE T4 1.02 ng/dL (0.76-1.46)
[2016-12-09 02:15] LABS: T3 TOTAL 84 ng/dL (71-180)
--- NOTE | 2016-12-14 15:00 | EKG ---
[facility] [address] [place] [address] Test Date: 2016-12-14 Test Time: 12:57:30 Pat Name: MARTHA PAGAN Department: Room: Gender: Blood Bank Laboratory Technician: : 1960 Requested By: MAGAN SIMON Order Number: [id number] Reading MD: Reed Portillo MD Interpretive Statements SINUS RHYTHM BASELINE ARTIFACT RARE PVC'S FREQUENT PAC'S Electronically Signed On 01-03-2017 14:07:13 COOK CHILI by Reed Portillo MD
== END | disposition home or self-care (01) ==
LOC: CCL 15:22
PROVIDERS: ATTEND Internal Medicine Cardiovascular Disease
DX: R00.2 Palpitations (principal); Z90.49 Acquired absence of other specified parts of digestive tract; Z87.39 Personal history of other diseases of the musculoskeletal system and connective tissue
CPT/HCPCS: 36415; 80053; 84439; 84443; 84480; 85025; 85651; 93225

== ENCOUNTER → 2017-01-04 | Outpatient (CLI) | payer OTHER ==
--- NOTE | 2017-01-05 15:17 | CARD ---
APPROVED REPORT EXAM: Two-dimensional and M-mode echocardiogram with Doppler and color Doppler. Other Information Quality : Average Rhythm : NSR INDICATION Arrhythmia Dyspnea Left sided pain 2D DIMENSIONS RVDd2.2 (2.9-3.5cm)Left Atrium(2D)2.5 (1.6-4.0cm) IVSd0.7 (0.7-1.1cm)Aortic Root(2D)2.5 (2.0-3.7cm) LVDd4.8 (3.9-5.9cm)LVOT Diameter2.0 (1.8-2.4cm) PWd0.7 (0.7-1.1cm)LVDs2.8 (2.5-4.0cm) FS (%) 32.5 %SV80.4 ml LVEF(%)63.0 (>50%) Aortic Valve AoV Peak Dawson.140.6cm/sAoV VTI27.6cm AO Peak GR.7.9mmHgLVOT Peak Dawson.130.5cm/s LVOT VTI 26.03cmAO Mean GR.4mmHg RICK (VMAX)2.20db3OYW (VTI)2.86cm2 Mitral Valve MV E Qkqoyygn59.5cm/sMV DECEL LVDH948up MV A Rotaqksi03.6cm/sMV OVD48ew E/A Ratio1.0MV A Mmghsmtp275pu MVA (PHT)3.05cm2 TDI E/Lateral E'6.9E/Medial E'7.0 Pulmonary Valve PV Peak Dkeripbh11.6cm/sPV Peak Grad.3mmHg RVOT VTI14.1cm Tricuspid Valve TR P. Nnccmtri385cj/sRAP EVAHBCAG1ujPe TR Peak Gr.57inHeIRMV28zeWw Pulmonary Vein S1 Oglordxy29.5cm/sD2 Ntevkhjn64.2cm/s LEFT VENTRICLE The left ventricle is normal size. There is normal left ventricular wall thickness. Left ventricle sy stolic function is normal. The Ejection Fraction is 63%. There is normal LV segmental wall motion. Th e left ventricular diastolic function and filling is normal for age. There is no ventricular septal d efect visualized. RIGHT VENTRICLE The right ventricle is normal size. The right ventricular systolic function is normal. ATRIA The left atrium size is normal. The right atrium size is normal. The interatrial septum is intact wit h no evidence for an atrial septal defect or patent foramen ovale as noted on 2-D or Doppler imaging. AORTIC VALVE The aortic valve is normal in structure and function. The aortic valve is trileaflet. Doppler and Col or Flow revealed no significant aortic regurgitation. There is no significant aortic valvular stenosi s. MITRAL VALVE The mitral valve is normal in structure and function. There is no mitral valve stenosis. Doppler and Color Flow revealed no mitral valve regurgitation noted. TRICUSPID VALVE The tricuspid valve is normal in structure Doppler and Color Flow revealed trace tricuspid regurgitat ion. The PA pressure was estimated at 22 mmHg. There is no tricuspid valve stenosis. PULMONIC VALVE The pulmonic valve is not well visualized. Doppler and Color Flow revealed no pulmonic valvular regur gitation. There is no pulmonic valvular stenosis. GREAT VESSELS The aortic root is normal in size. Normal pulmonary venous flow (Doppler). The IVC is normal in size and collapses >50% with inspiration. PERICARDIAL EFFUSION There is a very small pericardial effusion. Critical Notification Critical Value: No <Conclusion> Left ventricle systolic function is normal. The Ejection Fraction is 63%. The left atrium size is normal. The right atrium size is normal. The aortic valve is normal in structure and function. The aortic valve is trileaflet. The mitral valve is normal in structure and function. Doppler and Color Flow revealed trace tricuspid regurgitation. The PA pressure was estimated at 22 mmHg. The pulmonic valve is not well visualized. There is a very small pericardial effusion.
== END | disposition home or self-care (01) ==
LOC: ECHO 14:11
PROVIDERS: ATTEND Internal Medicine Cardiovascular Disease
DX: I31.3 Pericardial effusion (noninflammatory) (principal); R06.02 Shortness of breath; R07.9 Chest pain, unspecified
CPT/HCPCS: 93306

== ENCOUNTER → 2017-01-11 | Outpatient (CLI) | payer OTHER ==
[~2017-01-11] MED LIST changes: +CONTRAST GIVEN MC PRN; +IOHEXOL 300 MG/ML 100ML VIAL. IV ONE
--- NOTE | 2017-01-11 12:53 | RAD ---
CTA of the chest. 01/11/2017 Indication: [Dyspnea on exertion] Comparison study: [None available] Technique: Multidetector CT imaging of the chest was performed following the administration of intravenous contrast. Multiple reconstructions including 3-D maximum intensity projection reconstructions were created on an independent workstation and reviewed. Findings: There is no evidence of filling defect within central pulmonary arteries or other evidence of acute pulmonary embolism. Heart size is top normal. No significant pericardial effusion is seen. No pathologic mediastinal adenopathy is identified. Mild apical scarring present bilaterally. No other focal consolidation or infiltrate is seen. No pneumothorax or pleural effusion is seen. No acute osseous abnormality is identified. Limited visualization of the upper abdomen demonstrates no acute abnormality. Impression: No evidence of acute pulmonary embolism or other acute cardiopulmonary process. PQRS Compliance Statement: One or more of the following individualized dose reduction techniques were utilized for this examination: 1. Automated exposure control 2. Adjustment of the mA and/or kV according to patient size 3. Use of iterative reconstruction technique
== END | disposition home or self-care (01) ==
LOC: CT 10:38
PROVIDERS: ATTEND Physician Assistant
DX: R06.09 Other forms of dyspnea (principal)
CPT/HCPCS: 71275

== ENCOUNTER → 2017-03-21 | Outpatient (CLI) | payer OTHER | END | disposition home or self-care (01) | LOC: CT 08:56 | DX: J34.2 Deviated nasal septum (principal) | CPT/HCPCS: 70486 ==

== ENCOUNTER → 2017-04-28 | Outpatient (CLI) | payer OTHER | END | disposition home or self-care (01) | LOC: ECHO 09:04 | DX: I31.3 Pericardial effusion (noninflammatory) (principal); I34.1 Nonrheumatic mitral (valve) prolapse; R53.83 Other fatigue; R06.02 Shortness of breath | CPT/HCPCS: 93306 ==

== ENCOUNTER → 2017-06-20 | Outpatient (CLI) | payer OTHER ==
[2017-06-20 13:15] LABS: ADD MAN DIFF? NO
[2017-06-20 13:32] LABS: BASO % 1 % (0-3); EOS # 0.1 x10^3/uL (0.0-0.7); EOS % 2 % (0-3); HEMATOCRIT 38.5 % (36.0-47.0); HEMOGLOBIN 13.6 g/dL (12.0-15.5); LYMPH # 2.1 x10^3/uL (1.0-4.8); LYMPH % 48 % (24-48); MEAN CORPUSCULAR HEMOGLOBIN 33 pg (25-35); MEAN CORPUSCULAR HGB CONC 35 g/dL (31-37); MEAN CORPUSCULAR VOLUME 95 fL (79-100); MONO # 0.3 x10^3/uL (0.0-1.1); MONO % 7 % (0-9); NEUT # 1.9 x10^3uL (1.8-7.7); NEUT % 42 % (31-73); PLATELET COUNT 225 x10^3/uL (140-400); RED BLOOD COUNT 4.08 x10^6/uL (3.50-5.40); RED CELL DISTRIBUTION WIDTH 12.7 % (11.5-14.5); WHITE BLOOD COUNT 4.5 x10^3/uL (4.0-11.0)
[2017-06-20 13:47] LABS: ALBUMIN/GLOBULIN RATIO 1.1 (1.0-1.7); ALK PHOS 103 U/L (46-116); ALT (SGPT) 27 U/L (14-59); ANION GAP 6 (6-14); AST (SGOT) 24 U/L (15-37); BLOOD UREA NITROGEN 18 mg/dL (7-20); BUN/CREATININE RATIO 16 (6-20); C-REACTIVE PROTEIN 1.4 mg/L (0-3.3); CALCIUM 9.3 mg/dL (8.5-10.1); CARBON DIOXIDE 30 mmol/L (21-32); CHLORIDE 104 mmol/L (98-107); CREATININE 1.1 mg/dL (0.6-1.0); GFR 51.8; GLUCOSE 94 mg/dL (70-99); POTASSIUM 3.6 mmol/L (3.5-5.1); SODIUM 140 mmol/L (136-145); TOTAL BILIRUBIN 0.3 mg/dL (0.2-1.0); TOTAL PROTEIN 7.8 g/dL (6.4-8.2)
[2017-06-20 14:39] LABS: SEDIMENTATION RATE 10 (0-25)
[2017-06-20 21:20] LABS: RHEUMATOID FACTOR <10.0 IU/mL (0.0-13.9)
[2017-06-21 22:11] LABS: CYCLIC CITRULLIN PEP AB 5 units (0-19)
[2017-06-22 12:22] LABS: ANTI-DS DNA 3 IU/mL (0-9); RNP ANTIBODY <0.2 AI (0.0-0.9); SMITH AB <0.2 AI (0.0-0.9); SSA ANTIBODY <0.2 AI (0.0-0.9); SSB ANTIBODY <0.2 AI (0.0-0.9)
== END | disposition home or self-care (01) ==
LOC: RAD 12:55
DX: M25.571 Pain in right ankle and joints of right foot (principal); M25.572 Pain in left ankle and joints of left foot; M79.642 Pain in left hand; M79.641 Pain in right hand; I10 Essential (primary) hypertension; J32.9 Chronic sinusitis, unspecified
CPT/HCPCS: 36415; 73130; 73630; 80053; 85025; 85651; 86140; 86200; 86235; 86431; 87801

== ENCOUNTER 2017-07-27 06:31 | Outpatient (CLI) | payer OTHER ==
[2017-07-27 06:57] LABS: HEMATOCRIT 39.1 % (36.0-47.0); HEMOGLOBIN 13.7 g/dL (12.0-15.5); MEAN CORPUSCULAR HEMOGLOBIN 33 pg (25-35); MEAN CORPUSCULAR HGB CONC 35 g/dL (31-37); MEAN CORPUSCULAR VOLUME 95 fL (79-100); PLATELET COUNT 199 x10^3/uL (140-400); RED BLOOD COUNT 4.13 x10^6/uL (3.50-5.40); RED CELL DISTRIBUTION WIDTH 12.6 % (11.5-14.5); WHITE BLOOD COUNT 3.8 x10^3/uL (4.0-11.0)
[2017-07-27] MEDS ORDERED: LIDOCAINE 2% 20 ML VIAL. (07:05)
[2017-07-27] MEDS ORDERED: IODIXANOL 320 MG/ML 100 ML VIAL. (07:05)
[2017-07-27] MEDS ORDERED: HEPARIN for ARTERIAL LINE 1,500 ML (07:06)
[2017-07-27 07:08] LABS: ANION GAP 6 (6-14); BLOOD UREA NITROGEN 16 mg/dL (7-20); CALCIUM 8.9 mg/dL (8.5-10.1); CARBON DIOXIDE 29 mmol/L (21-32); CHLORIDE 107 mmol/L (98-107); CREATININE 0.9 mg/dL (0.6-1.0); GFR 65.2; GLUCOSE 98 mg/dL (70-99); POTASSIUM 3.7 mmol/L (3.5-5.1); SODIUM 142 mmol/L (136-145)
[2017-07-27 07:20] LABS: PARTIAL THROMBOPLASTIN TIME 27 SEC (24-38); PROTHROMBIN TIME PATIENT 12.4 SEC (11.7-14.0)
[2017-07-27] MEDS ORDERED: MIDAZOLAM HCL/PF 2 MG/2 ML VIAL. (07:29)
[2017-07-27] MEDS ORDERED: fentaNYL PF VIAL 100 MCG/2 ML VIAL (07:29)
[2017-07-27] MEDS ORDERED: VERAPAMIL 5 MG/2 ML VIAL. (07:49)
[2017-07-27] MEDS ORDERED: NITROGLYCERIN 200 MCG/2 ML SYRINGE FOR CATH/VASC LAB. (07:49)
[2017-07-27] MEDS ORDERED: HEPARIN for IV BOLUS 10,000 UNIT/10 ML VIAL. (07:49)
[2017-07-27] MEDS: NITROGLYCERIN 200 MCG/2 ML SYRINGE FOR CATH/VASC LAB. IART (08:56)
[2017-07-27] MEDS: IODIXANOL 320 MG/ML 100 ML VIAL. IART (08:57)
[2017-07-27] MEDS: VERAPAMIL 5 MG/2 ML VIAL. IART (08:57)
[2017-07-27] MEDS: HEPARIN for IV BOLUS 10,000 UNIT/10 ML VIAL. IART (08:58)
[2017-07-27] MEDS: LIDOCAINE 2% 20 ML VIAL. IJ (08:58)
[2017-07-27] MEDS: MIDAZOLAM HCL/PF 2 MG/2 ML VIAL. IV (08:59)
[2017-07-27] MEDS: fentaNYL PF VIAL 100 MCG/2 ML VIAL IV (08:59)
[2017-07-27] MEDS ORDERED: NITROGLYCERIN SUBLINGUAL 0.4 MG BOTTLE OF 25. SL (09:15)
[2017-07-27] MEDS ORDERED: 0.9 % SODIUM CHLORIDE 10 ML DISP.SYRIN. IV (09:15)
== END 2017-07-27 11:30 | disposition home or self-care (01) ==
LOC: CCL 06:31
DX: R06.00 Dyspnea, unspecified (principal); Z90.49 Acquired absence of other specified parts of digestive tract; Z98.890 Other specified postprocedural states; Z79.01 Long term (current) use of anticoagulants
CPT/HCPCS: 36415; 80048; 85027; 85610; 85730; 93458; 99152; 99153; C1769; C1892; J1644; J2250; J3010; J3490

== ENCOUNTER → 2017-10-12 | Outpatient (CLI) | payer OTHER ==
[2017-07-27 11:05] VITALS: BP 97/64
[~2017-10-12] MED LIST changes: -CONTRAST GIVEN MC PRN; +FEXO180T81 PO; -IOHEXOL 300 MG/ML 100ML VIAL. IV ONE; +SOY155CA PO
--- NOTE | 2017-10-12 11:59 | RAD ---
EXAM: Maxillofacial bone CT without contrast. HISTORY: Sinusitis. TECHNIQUE: Computed tomographic images of the paranasal sinuses were obtained without contrast. *One or more of the following individualized dose reduction techniques were utilized for this examination: 1. Automated exposure control. 2. Adjustment of the mA and/or kV according to patient size. 3. Use of iterative reconstruction technique. COMPARISON: 03/21/2017. FINDINGS: There is no sinus opacification or air-fluid level. There are small small inferior left maxillary sinus mucous retention cysts. The ostiomeatal units are patent. There is rightward nasal septal deviation. There is no sinus wall erosion, thickening or expansion. The orbits are unremarkable. The mastoid air cells are clear. There is no mass effect or midline shift. There is no hydrocephalus. No suspicious calvarial lesion is seen. There are dental restorations. IMPRESSION: 1. Small left maxillary sinus mucous retention cysts. 2. Rightward nasal septal deviation. Electronically signed by: Lakeisha Law MD (10/12/2017 11:55 AM) [facility]
== END | disposition home or self-care (01) ==
LOC: CT 10:03
PROVIDERS: ATTEND Otolaryngology
DX: J34.1 Cyst and mucocele of nose and nasal sinus (principal); J34.2 Deviated nasal septum; I10 Essential (primary) hypertension; Z98.890 Other specified postprocedural states; Z79.899 Other long term (current) drug therapy; Z79.01 Long term (current) use of anticoagulants; Z87.39 Personal history of other diseases of the musculoskeletal system and connective tissue
CPT/HCPCS: 70486

== ENCOUNTER 2017-11-09 06:03 | Day surgery (SDC) | payer OTHER ==
[~2017-11-09] VITALS: Ht 167.6 cm; Wt 61.2 kg
[~2017-11-09 06:03] MED LIST changes: +CALC500T54 PO; +CHOL200074 PO; +CYAN25008 PO; +GLUC1CAP48 PO; +LACT1CAP6 PO; +MUPIROCIN 2 % NASAL OINTMENT 22GM TUBE. ONE; +OMEG-165 PO; +OXYMETAZOLINE 0.05% NASAL SPRAY 30ML BOTTLE. NS ONE; +OXYMETAZOLINE 0.05% NASAL SPRAY 30ML BOTTLE. NS PRN; +VITA1CAP PO
[2017-11-09] MEDS ORDERED: EPINEPHrine VIAL 30 MG/30 ML VIAL ONE (06:04)
[2017-11-09] MEDS ORDERED: PHENYLEPHRINE 0.25% NASAL SPRAY 15ML BOTTLE. NS ONE (06:04)
[2017-11-09] MEDS ORDERED: LIDOCAINE 1%/EPI 1:100,000 20 ML VIAL. ONE (06:04)
[2017-11-09] MEDS ORDERED: LIDOCAINE 1% PF 2 ML VIAL. ID PRN (07:00)
[2017-11-09] MEDS ORDERED: PROCHLORPERAZINE 10 MG/2 ML VIAL. IV PRN (07:00)
[2017-11-09] MEDS ORDERED: IV RINGERS,LACTATED 1000ML 1,000 ML IV SCH (07:00)
[2017-11-09] MEDS ORDERED: MORPHINE SULFATE 2 MG/ML VIAL. IV PRN (07:00)
[2017-11-09] MEDS ORDERED: fentaNYL PF VIAL 100 MCG/2 ML VIAL IV PRN ×2 (07:00)
[2017-11-09] MEDS ORDERED: SCOPOLAMINE 1.5MG PATCH. TD ONE (07:00)
[2017-11-09] MEDS ORDERED: HYDROmorphone 2 MG/ML VIAL IV PRN (07:00)
[2017-11-09] MEDS ORDERED: TRIAMCINOLONE ACETONIDE 40 MG/ML VIAL. SUBLESION ONE (07:15)
[2017-11-09] MEDS ORDERED: fentaNYL PF VIAL 100 MCG/2 ML VIAL ONE (07:19)
[2017-11-09] MEDS ORDERED: MIDAZOLAM HCL/PF 2 MG/2 ML VIAL. ONE (07:19)
[2017-11-09] MEDS ORDERED: ONDANSETRON PF 4 MG/2 ML VIAL. ONE (07:20)
[2017-11-09] MEDS ORDERED: DEXAMETHASONE SOD PHOS 20 MG/5 ML VIAL. ONE (07:20)
[2017-11-09] MEDS ORDERED: FAMOTIDINE 20 MG/2 ML VIAL ONE (07:20)
[2017-11-09] MEDS ORDERED: PROPOFOL 20 ML IV ONE (07:20)
[2017-11-09] MEDS ORDERED: ROCURONIUM 50 MG/5 ML VIAL. ONE (07:22)
[2017-11-09] MEDS ORDERED: ePHEDrine PF IN SALINE 50 MG/5 ML DISP.SYRIN IV ONE (08:17)
[2017-11-09] MEDS ORDERED: GLYCOPYRROLATE 1 MG/5 ML VIAL. ONE (10:08)
[2017-11-09] MEDS ORDERED: NEOSTIGMINE METHYLSULFATE 5 MG/5 ML SYRINGE. ONE (10:08)
[2017-11-09] MEDS ORDERED: SEVOFLURANE > 120 MINUTES. IH ONE (10:14)
--- NOTE | 2017-11-09 10:35 | PDOC4 ---
IMMEDIATE POST OP NOTE Date: Nov 09, 2017 Pre-Op Diagnosis recurrent acute pansinusitis, chronic eustachian tube dysfunction, bilateral inferior turbinate hypertrophy Post-Op Diagnosis Same As Above Procedure Performed 1. Bilateral functional endoscopic sinus surgery under image guided navigation to include bilateral frontal sinusotomy, bilateral total ethmoidectomy, bilateral sphenoidotomy, bilateral medial maxillary antrostomy 2. Bilateral inferior turbinoplasty 3. Bilateral eustachian tube dilation Surgeon Dr. Jacy Harrison Waterfront Director none Anesthesiologist Dr. Thompson Anesthesia Type: General Blood Loss 50mL Specimens Obtained none Findings 1. High septal deflection to right 2. Polypoid inflammation throughout operated sinuses. No carmina infection 3. Evidence of previous surgery with complete resection of bilateral middle turbinates 4. Bilateral inferior turbinate hypertrophy Complications none Operative Note # [id number] JACY HARRISON MD Nov 09, 2017 10:35
[2017-11-09] MEDS ORDERED: ONDA4TAB10 SL (10:41)
[2017-11-09] MEDS ORDERED: OXYC-323 PO (10:42)
[2017-11-09] MEDS ORDERED: oxyCODONE/APAP 5/325 1 TAB TABLET PO ONE ×2 (11:00)
[2017-11-09] MEDS: ONDANSETRON PF 4 MG/2 ML VIAL. IV PRN ×2 (11:09→11:28)
--- NOTE | 2017-11-09 11:59 | OP ---
DATE OF SURGERY: 11/09/2017 PREOPERATIVE DIAGNOSES: Recurrent acute pansinusitis, chronic eustachian tube dysfunction and bilateral inferior turbinate hypertrophy. POSTOPERATIVE DIAGNOSES: Recurrent acute pansinusitis, chronic eustachian tube dysfunction and bilateral inferior turbinate hypertrophy. PROCEDURE PERFORMED: Bilateral functional endoscopic sinus surgery under image guidance navigation to include bilateral medial maxillary antrostomy, bilateral total ethmoidectomy, bilateral sphenoidotomy and bilateral frontal sinusotomy, bilateral inferior turbinoplasty, bilateral eustachian tube dilation. SURGEON: Jacy Harrison MD. ANESTHESIA: General endotracheal anesthesia. ANESTHESIOLOGIST: Dr. Adilson Gracia. ESTIMATED BLOOD LOSS: 50 mL. INDICATIONS FOR SURGERY: The patient is a 57-year-old female with a history of recurrent acute pansinusitis. The patient is suffering 4-5 sinus infections annually. The patient also has chronic sinus pressure, chronic nasal congestion and chronic eustachian tube dysfunction that has been refractory to medical management. The decision was made the patient to undergo the above procedure after the risks, benefits, and alternatives of surgery were thoroughly discussed with the patient and informed consent was obtained. INTRAOPERATIVE FINDINGS: 1. High septal deflection of the right; however, is not significant enough to warrant a septoplasty. 2. Polypoid inflammation throughout the operated sinuses, although no carmina infection was seen. 3. Evidence of previous surgery with complete resection of the bilateral middle turbinates. 4. Bilateral inferior turbinate hypertrophy. DESCRIPTION OF THE PROCEDURE: The patient was brought back to room per Anesthesia and intubated in a standard fashion. The patient was then turned 90 degrees in the room. The nasal vestibular hairs were trimmed and I injected a submucosal fashion in the anterior aspect of the septum and anterior aspect of the inferior turbinates bilaterally. Afrin-soaked pledgets were then inserted in the nasal cavity bilaterally. The [employer] image guidance system was then set up and verified for accuracy. This was used throughout the case to ensure complete dissection and to ensure the patient's safety. The patient was then prepped and draped in standard fashion. The Afrin-soaked pledgets were removed. A 30-degree scope was used to visualize the patient's bilateral nasal cavity. The patient was found to have a high septal deflection to the right and the patient was also found to have significant inferior turbinate hypertrophy. There was evidence of previous sinus surgery as the middle turbinates were absent bilaterally and there was some significant scar tissue along the uncinate and anterior ethmoid bulla bilaterally. The scope was used to visualize the nasopharynx bilaterally and the patient had a previous adenoidectomy and some inflammation around the eustachian tube orifice bilaterally. Beginning on the left side, the Entellus balloon system was bent to the eustachian tube configuration. I then inserted the Entellus probe into the eustachian tube orifice without meeting any resistance. The balloon was then placed over the probe and insufflated to 12 atmospheres of pressure for 2 minutes. The balloon was then deflated and the probe was removed and there was no significant trauma noted to the eustachian tube orifice, which was now much more patent. An identical procedure was performed on the right side. I then began performing the sinus surgery. Beginning on the left side, I used a 30-degree scope to visualize the uncinate process. Using a backbiter forceps, I resected the most inferior portion of the vertical process of the uncinate. The vertical and horizontal process of the uncinate were then medialized and completely resected. I identified the natural ostia of the maxillary sinus and this was widened both anteriorly and posteriorly until it was widely patent. I then used the microdebrider cut through the anterior ethmoid bulla. I then resected all of the ethmoid air cells beginning in the medial inferior plane and dissecting superiorly to the skull base and laterally to the lamina papyracea, posteriorly identified the natural ostia of the sphenoid sinus, just medial and inferior to the superior turbinate. This was widened superiorly to the skull base and laterally to the lamina papyracea. I then used a 30-degree scope to visualize the skull base and we carefully resected all the ethmoid air cells off the skull base. Anteriorly, I identified the frontal sinus outflow tract posterior to the agger nasi cell, the patient did have an intersinus septum within the frontal sinus and this was resected as much as possible. However, there was still a medial and lateral portion into the frontal sinus on this side. After all of the operated sinuses were completely opened, topical epinephrine was placed for several minutes for hemostasis. This was subsequently removed. All the sinuses were thoroughly irrigated. A propel contour implant was placed within the medial frontal sinus outflow tract and a Propel standard implant was placed within the sphenoid sinus and posterior ethmoid air cells. Attention was then taken to the right nasal cavity. In a similar fashion, the patient was found to have a high septal deflection to the right, which somewhat limited by view; however, I could easily move around the septal deflection and visualized the sinus as well. Again, the patient had evidence of a previous complete resection of the middle turbinate with significant scar tissue along the uncinate process and anterior ethmoid bulla. I used the backbiter forceps to resect the most inferior portion of the vertical process of the uncinate. The vertical and horizontal processes of uncinate were then medialized and completely resected. The natural ostia of the maxillary sinus was then identified. This was widened both anteriorly and posteriorly until it was widely patent. I then used the microdebrider cut through the anterior ethmoid bulla and I traveled posteriorly within the medial inferior plane removing the ethmoid air cells. At the base of the sphenoid, I did identify the natural os of the sphenoid sinus. Just medial to the inferior portion of the superior turbinate, the sinus ostia was identified and it was widened with sharp dissection superiorly to the skull base and laterally to the lamina papyracea. I also resected it slightly inferiorly and I did encounter the palatine branch of the sphenopalatine artery. Using suction Bovie, hemostasis was obtained. I then used a 30-degree scope to visualize the skull base. I completely resected the ethmoid air cells off the skull base and off of the lamina papyracea laterally. I identified the frontal sinus outflow tract posterior to the agger nasi cell and a medial plane. The posterior wall of the organized cell was completely resected to make the frontal sinus outflow tract more widely patent. I also ensured to resect all the suprabullar ethmoid air cells, so that the complete ethmoidectomy had been performed. There was polypoid inflammation throughout the operated sinuses, although no carmina infection was identified. The excess mucosa was trimmed. All the operated sinuses were thoroughly irrigated and topical epinephrine was placed for several minutes for hemostasis. A contour Propel implant was then placed within the frontal sinus outflow tract and a contour standard implant was placed within the sphenoid and posterior ethmoid air cell region. I then performed a bilateral inferior turbinoplasty. Beginning on the left side, I cut into the anterior aspect of the inferior turbinate. I then resected in a submucosal fashion the excess mucosa along the anterior portion of the inferior turbinate. I then trimmed the mucosa along the entire length of the inferior turbinate along its lateral and inferior borders, also resecting the posterior mulberry tissue. Suction [place] was used to elevate the residual mucosa off the most inferior portion of the turbinate bone and a very conservative resection of the most inferior portion of the turbinate bone was performed with Edmar-Cut forceps. The residual mucosa was then trimmed and redraped the residual turbinate bone. The residual turbinate bone was outfractured. Suction Bovie electrocautery was used posteriorly for hemostasis. An identical procedure was performed on the right side and after this was completed, the nasal airway was widely patent bilaterally. The nasal cavity was then thoroughly aspirated. The patient was turned back over to anesthesia and extubated without complication. All sponge, needle, instrument counts correct at the end of the case. COMPLICATIONS: None. DISPOSITION: Stable and transferred to recovery room. JACY HARRISON MD DR: SHERI/marycruz JOB#: [id number] / [id number] [place]
[2017-11-09 12:10] VITALS: BP 104/60
== END 2017-11-09 12:10 | disposition home or self-care (01) ==
LOC: SURG 06:03
PROVIDERS: ATTEND Otolaryngology
DX: J32.4 Chronic pansinusitis (principal); J34.3 Hypertrophy of nasal turbinates; H69.83 Other specified disorders of Eustachian tube, bilateral; Z79.899 Other long term (current) drug therapy; Z83.3 Family history of diabetes mellitus; Z82.3 Family history of stroke; Z82.49 Family history of ischemic heart disease and other diseases of the circulatory system; Z72.89 Other problems related to lifestyle; Z98.890 Other specified postprocedural states
CPT/HCPCS: 30140; 31256; 31257; 31276; 69799; A7015; C1713; C9745; J0171; J0690; J1100; J2250; J2405; J2704; J2710; J3010; J3490; J7120; S0028; J3301

== ENCOUNTER → 2018-01-10 | Outpatient (CLI) | payer OTHER ==
[~2018-01-10] MED LIST changes: -MUPIROCIN 2 % NASAL OINTMENT 22GM TUBE. ONE; +OXYC-323 PO; -OXYMETAZOLINE 0.05% NASAL SPRAY 30ML BOTTLE. NS ONE; -OXYMETAZOLINE 0.05% NASAL SPRAY 30ML BOTTLE. NS PRN
--- NOTE | 2018-01-10 09:07 | RAD ---
DATE: 01/10/2018 EXAM: MAMMO RAMON SCREENING BILATERAL HISTORY: Routine screening COMPARISON: 01/08/2016 This study was interpreted with the benefit of Computerized Aided Detection (CAD). Breast Density: HETERO The breast parenchyma is heterogenously dense, which could reduce sensitivity of mammography. Breast parenchyma level C. FINDINGS: 2-D and 3-D tomosynthesis imaging was performed in CC and MLO projections. There is a unchanged small benign-appearing lymph node type density in the lateral aspect of the left breast. No spiculated mass or architectural distortion is seen. No suspicious microcalcifications are evident. IMPRESSION: Stable mammograms without evidence of malignancy. BI-RADS CATEGORY: 2 BENIGN FINDING(S) RECOMMENDED FOLLOW-UP: 12M 12 MONTH FOLLOW-UP PQRS compliance statement: Patient information was entered into a reminder system with a target due date for the next mammogram. Mammography is a sensitive method for finding small breast cancers, but it does not detect them all and is not a substitute for careful clinical examination. A negative mammogram does not negate a clinically suspicious finding and should not result in delay in biopsying a clinically suspicious abnormality. "Our facility is accredited by the [employer] Mammography [employer]."
== END | disposition home or self-care (01) ==
LOC: MAMMO 08:28
PROVIDERS: ATTEND Family Medicine
DX: Z12.31 Encounter for screening mammogram for malignant neoplasm of breast (principal)
CPT/HCPCS: 77063; 77067

== ENCOUNTER → 2018-02-28 | Outpatient (CLI) | payer OTHER ==
[~2018-02-28] MED LIST changes: -GABA-586 PO; +GABA300C18 PO; -OXYC-323 PO; +OXYC1TAB15 PO
[2018-02-28 08:15] LABS: BASO % 1 % (0-3); EOS # 0.5 x10^3/uL (0.0-0.7); EOS % 12 % (0-3); HEMATOCRIT 39.2 % (36.0-47.0); HEMOGLOBIN 13.8 g/dL (12.0-15.5); LYMPH # 2.1 x10^3/uL (1.0-4.8); LYMPH % 48 % (24-48); MEAN CORPUSCULAR HEMOGLOBIN 34 pg (25-35); MEAN CORPUSCULAR HGB CONC 35 g/dL (31-37); MEAN CORPUSCULAR VOLUME 95 fL (79-100); MONO # 0.3 x10^3/uL (0.0-1.1); MONO % 8 % (0-9); NEUT # 1.4 x10^3uL (1.8-7.7); NEUT % 33 % (31-73); PLATELET COUNT 210 x10^3/uL (140-400); RED BLOOD COUNT 4.12 x10^6/uL (3.50-5.40); RED CELL DISTRIBUTION WIDTH 12.3 % (11.5-14.5); WHITE BLOOD COUNT 4.4 x10^3/uL (4.0-11.0)
[2018-02-28 08:26] LABS: ALBUMIN 4.2 g/dL (3.4-5.0); ALBUMIN/GLOBULIN RATIO 1.2 (1.0-1.7); CALCIUM 9.3 mg/dL (8.5-10.1); CREATININE 0.8 mg/dL (0.6-1.0); GFR 74.5; POTASSIUM 3.9 mmol/L (3.5-5.1); TOTAL BILIRUBIN 0.4 mg/dL (0.2-1.0); TOTAL PROTEIN 7.7 g/dL (6.4-8.2)
[2018-02-28 08:27] LABS: CHOLESTEROL/HDL RATIO 4.9
[2018-02-28 19:14] LABS: THYROXINE 6.7 ug/dL (4.5-12.0)
== END | disposition home or self-care (01) ==
LOC: LAB 07:23
PROVIDERS: ATTEND Nurse Practitioner
DX: E78.5 Hyperlipidemia, unspecified (principal); N28.9 Disorder of kidney and ureter, unspecified; M25.511 Pain in right shoulder; M25.512 Pain in left shoulder
CPT/HCPCS: 36415; 80053; 80061; 82550; 84436; 84443; 84480; 85025; 85651; 86617; 86618

== ENCOUNTER → 2018-06-04 | Outpatient (CLI) | payer OTHER ==
[~2018-06-04] MED LIST changes: +GADOBUTROL 7.5 MMOL/7.5 ML VIAL INT ART ONE; +IOHEXOL 300 MG/ML 50 ML VIAL. INT ART ONE; +LIDOCAINE 1% Multi-Dose 20 ML VIAL. ID ONE
--- NOTE | 2018-06-04 16:52 | KCIC ---
MRI right shoulder arthrogram. Clinical indications: Right shoulder pain and numbness for 2 months. TECHNIQUE: After intra-articular injection of gadolinium, post arthrogram MRI sequences of the right shoulder were performed in all 3 planes. The intra-articular injection of gadolinium was performed by another radiologist and is dictated under separate report. Additional ABER sequence was performed. COMPARISON: None available. FINDINGS: There is increased signal within the lateral aspect of the supraspinatus tendon consistent with tendinosis. No partial articular surface tear or complete tear of the rotator cuff is evident. Subscapularis tendon and transverse ligament are intact. The tendon of the long of the biceps is intact. No muscle atrophy is evident. Mild subdeltoid and subacromial bursitis is seen. There is mild degenerative osteoarthritis and spurring of the AC joint. There is mild spurring of the inferior edge of the acromial process. A type III acromial process is seen. These findings may impinge the acromial humeral space. No bone contusion or fracture or marrow infiltrative process is seen. Chronic cystic change of the lateral aspect humeral head is seen secondary to chronic impingement. There is a small superior labral tear just posterior to the biceps anchor. No paralabral ganglion cyst or spinoglenoid notch ganglion cyst is seen. The glenohumeral joint is unremarkable and no loose osteochondral body is evident. IMPRESSION: Tendinosis of the supraspinatus tendon. No partial articular surface tear or complete tear of the rotator cuff is seen. Impingement of the acromial humeral space as discussed above. Mild subdeltoid and subacromial bursitis. Small tear of the superior glenoid labrum just posterior to the biceps anchor. Electronically signed by: Tristan Landaverde MD (06/04/2018 4:49 PM) [facility]
--- NOTE | 2018-06-04 17:27 | KCIC ---
Clinical indications: Right shoulder pain and numbness for 2 months. FLUOROSCOPIC GUIDED RIGHT SHOULDER ARTHROGRAM Procedure: The procedure and possible complications including bleeding and infection were explained. The patient provided both verbal and written consent. A timeout was performed confirming the name of the patient and date of and the procedure and side of the procedure. The anterior aspect of the right shoulder was prepped and draped in the usual sterile fashion with ChloraPrep. A total of 3 cc of 1% lidocaine was utilized for local anesthesia. Using sterile technique and fluoroscopic guidance, a 22-gauge spinal needle was directed into the right glenohumeral joint from an anterior approach. A solution containing 10 cc of sterile normal saline and 5 cc of Omnipaque 300 and 5 cc of 1% lidocaine and 0.1 cc of Gadavist was injected intra-articularly under fluoroscopic observation and a fluoroscopic spot view of the right shoulder was performed which confirmed intra-articular position of the contrast. The needle was removed and hemostasis was adequate. A sterile bandage was applied to the puncture site. Another fluoroscopic spot image was performed. The patient tolerated the procedure well without complication and was sent to the MRI suite for further imaging. Total fluoroscopic time: 8 seconds. 2 fluoroscopic spot images were performed. Impression: Fluoroscopic guided right shoulder injection was performed prior to an MRI study. Electronically signed by: Tristan Landaverde MD (06/04/2018 5:24 PM) [facility]
== END | disposition home or self-care (01) ==
LOC: KCIC 13:33
PROVIDERS: ATTEND Orthopaedic Surgery
DX: S43.431A Superior glenoid labrum lesion of right shoulder, initial encounter (principal); M75.51 Bursitis of right shoulder; M19.011 Primary osteoarthritis, right shoulder; M75.81 Other shoulder lesions, right shoulder; X58.XXXA Exposure to other specified factors, initial encounter; Y93.89 Activity, other specified; Y92.89 Other specified places as the place of occurrence of the external cause; Y99.8 Other external cause status
CPT/HCPCS: 23350; 73040; 73222; A9585; Q9967

== ENCOUNTER → 2019-01-08 | Outpatient (CLI) | payer OTHER ==
[~2019-01-08] MED LIST changes: +ASCO500T2 PO; +CETI1TAB7 PO; -GADOBUTROL 7.5 MMOL/7.5 ML VIAL INT ART ONE; -IOHEXOL 300 MG/ML 50 ML VIAL. INT ART ONE; -LIDOCAINE 1% Multi-Dose 20 ML VIAL. ID ONE; +TURM500C4 PO
--- NOTE | 2019-01-08 14:26 | RAD ---
EXAM: Thoracic spine, 3 views; cervical spine, 5 views. HISTORY: Pain. COMPARISON: None. FINDINGS: Thoracic spine: 3 views of the thoracic spine are obtained. There is a mild anterior wedge compression deformity of T6. This is chronic in appearance. The disc spaces are preserved. Cervical spine: 5 views of cervical spine are obtained. There is mild cervical kyphosis centered at C5. There is minimal anterolisthesis of C2 on C3, C3 on C4 and C4 on C5 and retrolisthesis of C5 on C6. There is degenerative endplate remodeling with disc space narrowing at C5-C6. No significant foraminal stenosis is seen. No fracture is seen. IMPRESSION: 1. Degenerative change primarily at C5-C6. 2. Mild cervical kyphosis and slight listhesis at the upper and mid cervical levels. 3. Mild chronic appearing wedge compression deformity of T6. Electronically signed by: Lakeisha Law MD (01/08/2019 2:23 PM) [facility]
== END | disposition home or self-care (01) ==
LOC: RAD 11:38
PROVIDERS: ATTEND Nurse Practitioner
DX: M48.02 Spinal stenosis, cervical region (principal); M47.812 Spondylosis without myelopathy or radiculopathy, cervical region; M40.292 Other kyphosis, cervical region
CPT/HCPCS: 72050; 72072

== ENCOUNTER → 2019-03-07 | Outpatient (CLI) | payer OTHER ==
[~2019-03-07] MED LIST changes: -CETI10TA22 PO; +CETI10TA24 PO
--- NOTE | 2019-03-08 07:43 | RAD ---
History: Routine screening. Technique: Bilateral digital mammographic routine views were obtained with CAD - computer aided detection. 2D and 3D imaging was used Comparison: 12/24/2014, 01/08/2016 and 01/10/2018. Findings: Breast Tissue Density C : The breast tissue is heterogeneously dense. Scattered fibroglandular elements may obscure underlying pathology. There are no suspicious masses, microcalcifications or areas of architectural distortion. Impression: No suspicious findings. BI-RADS Category 1: Negative. Normal interval followup. Your mammogram demonstrates that you have dense breast tissue, which could hide abnormalities, and if you have other risk factors for breast cancer that have been identified, you might benefit from supplemental screening tests that may be suggested by your ordering physician. Dense breast tissue, in and of itself, is a relatively common condition. This information is not provided to cause undue concern, but rather to raise your awareness and to promote discussion with your physician regarding the presence of other risk factors, in addition to dense breast tissue. A report of your mammography results will be sent to you and your physician. You should contact your physician if you have any questions or concerns regarding this report. A mammogram does not have 100% sensitivity and therefore a negative imaging study should not delay further work up of a suspicious abnormality. The patient will receive a letter with the results in the mail. Patient information is entered into the reminder system with a target due date for the next screening mammogram. The patient will receive a reminder. "Our facility is accredited by the [employer] Mammography Program." BI-RADS 1 -- negative findings (within normal)
== END | disposition home or self-care (01) ==
LOC: MAMMO 14:18
PROVIDERS: ATTEND Family Medicine
DX: Z12.31 Encounter for screening mammogram for malignant neoplasm of breast (principal)
CPT/HCPCS: 77063; 77067

== ENCOUNTER → 2019-03-21 | Outpatient (CLI) | payer OTHER ==
[2019-03-21 08:35] LABS: ALBUMIN 4.3 g/dL (3.4-5.0); ALBUMIN/GLOBULIN RATIO 1.3 (1.0-1.7); CALCIUM 9.4 mg/dL (8.5-10.1); CREATININE 0.9 mg/dL (0.6-1.0); GFR 64.8; POTASSIUM 4.1 mmol/L (3.5-5.1); TOTAL BILIRUBIN 0.4 mg/dL (0.2-1.0); TOTAL PROTEIN 7.6 g/dL (6.4-8.2)
[2019-03-21 08:36] LABS: CHOLESTEROL/HDL RATIO 5.4
[2019-03-21 09:00] LABS: HEMATOCRIT 40.8 % (36.0-47.0); HEMOGLOBIN 13.8 g/dL (12.0-15.5); RED BLOOD COUNT 4.24 x10^6/uL (3.50-5.40); RED CELL DISTRIBUTION WIDTH 12.6 % (11.5-14.5); WHITE BLOOD COUNT 3.9 x10^3/uL (4.0-11.0)
== END | disposition home or self-care (01) ==
LOC: LAB 07:50
PROVIDERS: ATTEND Nurse Practitioner Family
DX: Z13.228 Encounter for screening for other metabolic disorders (principal)
CPT/HCPCS: 36415; 80053; 80061; 84443; 85027

== ENCOUNTER → 2020-06-01 | Outpatient (CLI) | payer OTHER ==
[~2020-06-01] MED LIST changes: -ASCO500T2 PO; +ASCO500T4 PO; -CETI10TA24 PO; +CETI10TA74 PO
--- NOTE | 2020-06-04 16:04 | RAD ---
DATE: 06/01/2020 EXAM: MAMMO RAMON SCREENING BILATERAL HISTORY: Screening COMPARISON: Multiple prior exams including 03/07/2019, 01/10/2018, 01/08/2016, and 12/09/2013 This study was interpreted with the benefit of Computerized Aided Detection (CAD). Breast Density: HETERO The breast parenchyma is heterogenously dense, which could reduce sensitivity of mammography. Breast parenchyma level C. FINDINGS: No mass, suspicious calcification, or architectural distortion in either breast. IMPRESSION: No evidence of malignancy. BI-RADS CATEGORY: 1 NEGATIVE RECOMMENDED FOLLOW-UP: 12M 12 MONTH FOLLOW-UP PQRS compliance statement: Patient information was entered into a reminder system with a target due date for the next mammogram. Mammography is a sensitive method for finding small breast cancers, but it does not detect them all and is not a substitute for careful clinical examination. A negative mammogram does not negate a clinically suspicious finding and should not result in delay in biopsying a clinically suspicious abnormality. "Our facility is accredited by the [employer] Mammography Program."
== END ==
LOC: MAMMO 08:22
PROVIDERS: ATTEND Obstetrics & Gynecology
DX: Z12.31 Encounter for screening mammogram for malignant neoplasm of breast (principal)
CPT/HCPCS: 77063; 77067

== ENCOUNTER → 2020-06-05 | Outpatient (CLI) | payer OTHER ==
[2020-06-05 08:18] LABS: HEMATOCRIT 39.2 % (36.0-47.0); HEMOGLOBIN 13.6 g/dL (12.0-15.5); RED BLOOD COUNT 4.07 x10^6/uL (3.50-5.40); RED CELL DISTRIBUTION WIDTH 12.3 % (11.5-14.5); WHITE BLOOD COUNT 4.5 x10^3/uL (4.0-11.0)
[2020-06-05 08:52] LABS: ALBUMIN 4.3 g/dL (3.4-5.0); ALBUMIN/GLOBULIN RATIO 1.4 (1.0-1.7); CALCIUM 8.7 mg/dL (8.5-10.1); GFR 57.1; TOTAL BILIRUBIN 0.4 mg/dL (0.2-1.0); TOTAL PROTEIN 7.3 g/dL (6.4-8.2)
[2020-06-05 08:55] LABS: CHOLESTEROL/HDL RATIO 6.5
[2020-06-05 09:05] LABS: FREE T4 1.05 ng/dL (0.76-1.46); THYROID STIM HORMONE (TSH) 1.549 uIU/mL (0.358-3.74)
== END ==
LOC: LAB 07:53
PROVIDERS: ATTEND Nurse Practitioner Family
DX: R00.2 Palpitations (principal)
CPT/HCPCS: 36415; 80053; 80061; 82306; 82607; 82746; 83540; 83550; 84439; 84443; 85027

== ENCOUNTER → 2021-07-06 | Outpatient (CLI) | payer OTHER ==
--- NOTE | 2021-07-06 09:33 | KCIC ---
EXAM: Brain MRI without contrast. HISTORY: Cognitive delay. TECHNIQUE: Multiplanar, multisequence magnetic resonance imaging of the brain was performed without c ontrast. COMPARISON: None. FINDINGS: There is no restricted diffusion to suggest acute or subacute infarction. There is no mass effect or midline shift. There are 2 tiny foci of signal change within the cerebral white matter, a n onspecific finding. The orbits are unremarkable. There is paranasal sinus because of thickening and e vidence of prior maxillary antrostomy/uncinectomy surgery. The mastoid air cells are clear. There are normal flow voids within the cerebral vessels. There is no suspicious calvarial lesion. There is a 3 mm pineal cyst, of no clinical significance. IMPRESSION: 1. No acute intracranial finding. 2. Tiny foci of signal change within the cerebral white matter, a nonspecific finding which can be se en with chronic small vessel disease and chronic migraine headaches. The imaging appearance does not favor changes due to demyelinating disease. Electronically signed by: Lakeisha Law MD (07/06/2021 9:31 AM) [facility]
== END ==
LOC: KCIC MRI 08:23
PROVIDERS: ATTEND Nurse Practitioner Family
DX: R29.818 Other symptoms and signs involving the nervous system (principal)
CPT/HCPCS: 70551